=== PATIENT | female | born 1965 | race Hispanic/Latino ===

== ENCOUNTER → 2022-11-06 | Day surgery (SDC) | payer BC ==
[~2022-11-06] MED LIST: FENTANYL CITRATE/PF 100MCG/2 ML INJ ONE; LACTATED RINGER'S 1,000 ML ONE; LISINOPRIL10 MG PO; MIDAZOLAM HCL 2 MG/2 ML VIAL ONE; OR PHACO EYE KIT ONE; PREOP PHACO EYE KIT ONE
[2022-11-06 08:05] VITALS: BP 110/69
== END | disposition home or self-care (01) ==
LOC: OR 05:26
PROVIDERS: ATTEND Ophthalmology
DX: H25.12 Age-related nuclear cataract, left eye (principal); I10 Essential (primary) hypertension; G47.00 Insomnia, unspecified; M16.0 Bilateral primary osteoarthritis of hip; N95.1 Menopausal and female climacteric states; E55.9 Vitamin D deficiency, unspecified; Z88.3 Allergy status to other anti-infective agents; Z88.2 Allergy status to sulfonamides; Z88.8 Allergy status to other drugs, medicaments and biological substances; Z79.899 Other long term (current) drug therapy; Z68.1 Body mass index [BMI] 19.9 or less, adult
CPT/HCPCS: 66984; J2250; J3010; J7121; V2632

== ENCOUNTER → 2022-11-20 | Day surgery (SDC) | payer BC ==
[2022-11-20 11:42] VITALS: BP 101/69
== END | disposition home or self-care (01) ==
LOC: OR 07:51
PROVIDERS: ATTEND Ophthalmology
DX: H25.11 Age-related nuclear cataract, right eye (principal); Z79.899 Other long term (current) drug therapy
CPT/HCPCS: 66984; J2250; J3010; J7121; V2632

== ENCOUNTER → 2024-08-28 | Day surgery (SDC) | payer BC ==
[~2024-08-28] MED LIST changes: +D3 PLUS K2 DOT1 EACH PO; -FENTANYL CITRATE/PF 100MCG/2 ML INJ ONE; +GLYCOPYRROLATE INJ 0.2 MG/ML VIAL ONE; +LIDOCAINE HCL 2% LOCAL INJ 5 ML SDV VIAL INJ ONE; +MAGNESIUM400 MG PO; -OR PHACO EYE KIT ONE; -PREOP PHACO EYE KIT ONE; +PROPOFOL IV EMULSION 10 MG/ML 20 ML VIAL ONE
[2024-08-28 11:33] VITALS: TEMP 98.2
[2024-08-28 11:55] VITALS: BP 110/72; PULSE 98; RESP 18; O2SAT 99
== END | disposition home or self-care (01) ==
LOC: OR 08:21
PROVIDERS: ATTEND Internal Medicine Gastroenterology
DX: R63.4 Abnormal weight loss (principal); K31.7 Polyp of stomach and duodenum; K29.70 Gastritis, unspecified, without bleeding; K29.80 Duodenitis without bleeding; K31.89 Other diseases of stomach and duodenum; K44.9 Diaphragmatic hernia without obstruction or gangrene; K21.9 Gastro-esophageal reflux disease without esophagitis; K59.00 Constipation, unspecified; I10 Essential (primary) hypertension; M06.9 Rheumatoid arthritis, unspecified; M19.90 Unspecified osteoarthritis, unspecified site; Z88.2 Allergy status to sulfonamides; Z79.899 Other long term (current) drug therapy
CPT/HCPCS: 43239; 93005; J2003; J2250; J2704; J7121